=== PATIENT | female | born 1995 | race Two or more races ===

== ENCOUNTER 2017-12-17 21:15 | Emergency (ER) | payer SELFPAY ==
[~2017-12-17] VITALS: Ht 154.9 cm; Wt 47.6 kg
[2017-12-17 21:36] VITALS: BP 116/77
[2017-12-17 22:01] LABS: BILIRUBIN,URINE NEGATIVE (NEG); CLARITY,URINE CLOUDY; COLOR,URINE RED; NITRITE,URINE NEGATIVE (NEG); PROTEIN,URINE 100 mg/dL (NEG-TRACE); UROBILINOGEN,URINE 0.2 mg/dL (0.2 mg/dL)
[2017-12-17 22:06] LABS: RBC,URINE TNTC /HPF (0-2)
[2017-12-17 22:07] LABS: BACTERIA,URINE FEW /HPF (0-FEW); SQUAMOUS EPITHELIAL CELL,UR MOD /LPF
--- NOTE | 2017-12-17 22:21 | PHYS DOC ---
Past Medical History Past Medical History: No Pertinent History Alcohol Use: Occasionally Drug Use: Marijuana Adult General Chief Complaint Chief Complaint: VAGINAL BLEEDING HPI HPI Patient is a 22 year old female who presents with vaginal bleeding 6 weeks Patient was diagnosed couple weeks ago. Last menstrual period was November 09, 2017. She had onset of vaginal spotting earlier today which progressed to vaginal bleeding. She's had cramping throughout the day. She's passed no clots. She was lightheaded. Patient also states, she's had dysuria for the last 3 days. Currently hurts when she urinates. Review of Systems Review of Systems Constitutional: Denies fever or chills Eyes: Denies change in visual acuity, redness, or eye pain HENT: Denies nasal congestion or sore throat Respiratory: Denies cough or shortness of breath Cardiovascular: No additional information not addressed in HPI GI: Denies abdominal pain, nausea, vomiting, bloody stools or diarrhea : With dysuria and vaginal bleeding, no hematuria Musculoskeletal: Denies back pain or joint pain Integument: Denies rash or skin lesions Neurologic: Denies headache, focal weakness or sensory changes Endocrine: Denies polyuria or polydipsia All other systems were reviewed and found to be within normal limits, except as documented in this note. Current Medications Current Medications Current Medications Medications (Trade) Dose Ordered Sig/[facility] Start Time Stop Time Status Last Admin Dose Admin Ceftriaxone Sodium 1 gm/ Dextrose 50 ml @ 100 mls/hr Q24H 12/17/17 23:30 UNV Ceftriaxone Sodium (Rocephin) 1 gm Q24H 12/18/17 21:00 12/18/17 21:00 DC Allergies Allergies Allergies Coded Allergies Type Severity Reaction Last Updated Verified No Known Drug Allergies 12/17/17 No Physical Exam Physical Exam Constitutional: Well developed, well nourished, no acute distress, non-toxic appearance. HENT: Normocephalic, atraumatic, bilateral external ears normal, oropharynx moist, no oral exudates, nose normal. Eyes: PERRLA, EOMI, conjunctiva normal, no discharge. Neck: Normal range of motion, no tenderness, supple, no stridor. Cardiovascular:Heart rate regular rhythm, no murmur Lungs & Thorax: Bilateral breath sounds clear to auscultation Abdomen: Bowel sounds normal, soft, with suprapubic tenderness, no masses, no pulsatile masses. Skin: Warm, dry, no erythema, no rash. Pelvic with RN [place]-charge nurse Ingrid CARTER Normal external female genitalia Blood in vault, no clots With uterine tenderness to palpation, no adnexal tenderness or masses, os closed. Back: No tenderness, no CVA tenderness. Extremities: No tenderness, no cyanosis, no clubbing, ROM intact, no edema. Neurologic: Alert and oriented X 3, normal motor function, normal sensory function, no focal deficits noted. Psychologic: Affect normal, judgement normal, mood normal. Current Patient Data Vital Signs Vital Signs Date Time Temp Pulse Resp B/P (MAP) Pulse Ox O2 Delivery O2 Flow Rate FiO2 12/17/17 21:36 98.1 82 16 116/77 (90) 99 Room Air 98.1 Lab Values Laboratory Tests Test 12/17/17 21:17 12/17/17 22:13 Urine Collection Type Unknown Urine Color Red Urine Clarity Cloudy Urine pH 6.0 Urine Specific [place] >=1.030 Urine Protein 100 mg/dL (NEG-TRACE) Urine Glucose (UA) Negative mg/dL (NEG) Urine Ketones (Stick) Trace mg/dL (NEG) Urine Blood Large (NEG) Urine Nitrite Negative (NEG) Urine Bilirubin Negative (NEG) Urine Urobilinogen Dipstick 0.2 mg/dL (0.2 mg/dL) Urine Leukocyte Esterase Small (NEG) Urine RBC Tntc /HPF (0-2) Urine WBC 1-4 /HPF (0-4) Urine Squamous Epithelial Cells Mod /LPF Urine Bacteria Few /HPF (0-FEW) Urine Mucus Mod /LPF White Blood Count 6.0 x10^3/uL (4.0-11.0) Red Blood Count 4.46 x10^6/uL (3.50-5.40) Hemoglobin 14.3 g/dL (12.0-15.5) Hematocrit 40.8 % (36.0-47.0) Mean Corpuscular Volume 92 fL (79-100) Mean Corpuscular Hemoglobin 32 pg (25-35) Mean Corpuscular Hemoglobin Concent 35 g/dL (31-37) Red Cell Distribution Width 13.2 % (11.5-14.5) Platelet Count 242 x10^3/uL (140-400) Neutrophils (%) (Auto) 58 % (31-73) Lymphocytes (%) (Auto) 34 % (24-48) Monocytes (%) (Auto) 7 % (0-9) Eosinophils (%) (Auto) 1 % (0-3) Basophils (%) (Auto) 0 % (0-3) Neutrophils # (Auto) 3.5 x10^3uL (1.8-7.7) Lymphocytes # (Auto) 2.0 x10^3/uL (1.0-4.8) Monocytes # (Auto) 0.4 x10^3/uL (0.0-1.1) Eosinophils # (Auto) 0.1 x10^3/uL (0.0-0.7) Basophils # (Auto) 0.0 x10^3/uL (0.0-0.2) Maternal Serum HCG Beta Subunit 10 mIU/mL (0-5) H Sodium Level 142 mmol/L (136-145) Potassium Level 3.6 mmol/L (3.5-5.1) Chloride Level 104 mmol/L (98-107) Carbon Dioxide Level 30 mmol/L (21-32) Anion Gap 8 (6-14) Blood Urea Nitrogen 6 mg/dL (7-20) L Creatinine 0.7 mg/dL (0.6-1.0) Estimated GFR (Cockcroft-Gault) 105.6 Glucose Level 108 mg/dL (70-99) H Calcium Level 9.4 mg/dL (8.5-10.1) Laboratory Tests 12/17/17 22:13 Laboratory Tests 12/17/17 22:13 Microbiology 12/17/17 Wet Prep - Final, Complete EKG EKG [] Radiology/Procedures Radiology/Procedures [facility] [address] [place] [address] IMAGING REPORT Signed PATIENT: NATONIA DUDLEY ACCOUNT: [id number] : 1995 LOCATION: ER AGE: 22 SEX: F EXAM STATUS: REG ER ORD. PHYSICIAN: KURT GOMEZ MD REASON: and bleeding PROCEDURE: PREG 1ST TRIMESTER Early OB ultrasound History: Beta hCG is 10. Pain Comparison: None. Technique: Endovaginal imaging was performed as this is more sensitive for detection of intrauterine . Findings: Uterus measures 6.2 cm in length. No intrauterine is identified. Endometrial thickness is 9 mm. Right ovary measures 1.8 x 2.2 x 3.1 cm and demonstrates a few follicles. Left ovary measures 1.7 x 2.2 x 2.1 cm and demonstrates a few follicles. Both ovaries demonstrate normal vascular flow upon Doppler interrogation and are without evidence of torsion. No adnexal masses are seen. Impression: 1. No intrauterine is identified, within expectation given the low beta hCG level of 10. Most likely etiology is exceedingly early intrauterine . Other less likely possibilities would be ectopic (although there is no positive ultrasound evidence of such) or completed spontaneous . 2. Recommend serial beta hCG levels and pelvic ultrasound as clinically indicated. Electronically signed by: Darek Diaz MD (12/17/2017 10:57 PM) [facility] DICTATED and SIGNED BY: DAREK DIAZ MD DATE: 12/17/17 8854 Course & Med Decision Making Course & Med Decision Making Pertinent Labs and Imaging studies reviewed. (See chart for details) Emergency Department Course Patient presents with vaginal bleeding DDx-threatened miscarriage, ectopic , complete The patient was stable in the ED. Labs unremarkable BHCG=10. Pelvic U/A showed no IUP. Blood type O+. U/A with blood WBCs and bacteria. Patient given Rocephin for dysuria. The patient will need serial BHCG testing with regional sales trainer follow-up. Patient given prescription for Keflex. Patient advised to return to the ED if she develops worse bleeding, pain, lightheadedness, fevers or vomiting. Dragon Disclaimer Dragon Disclaimer This electronic medical record was generated, in whole or in part, using a voice recognition dictation system. Departure Departure Impression: Primary Impression: Additional Impressions: Vaginal bleeding in Dysuria UTI (urinary tract infection) Disposition: 01 HOME, SELF-CARE Condition: STABLE Referrals: NO PCP (PCP) Follow-up tomorrow for further evaluation DENIA PILLAI Jr, MD Patient Instructions: Urinary Tract Infection, Vaginal Bleeding During , [id number] Additional Instructions: If he develop worse pain, bleeding, lightheadedness, fevers, vomiting return to the emergency department immediately Scripts Cephalexin (KEFLEX) 500 Mg Capsule 1 CAP PO BID, #14 CAP Prov: KURT GOMEZ MD 12/18/17 Problem Qualifiers KURT GOMEZ MD Dec 17, 2017 22:21
[2017-12-17 22:26] LABS: BASO % 0 % (0-3); EOS # 0.1 x10^3/uL (0.0-0.7); EOS % 1 % (0-3); HEMATOCRIT 40.8 % (36.0-47.0); HEMOGLOBIN 14.3 g/dL (12.0-15.5); LYMPH % 34 % (24-48); MEAN CORPUSCULAR HEMOGLOBIN 32 pg (25-35); MEAN CORPUSCULAR HGB CONC 35 g/dL (31-37); MEAN CORPUSCULAR VOLUME 92 fL (79-100); MONO # 0.4 x10^3/uL (0.0-1.1); MONO % 7 % (0-9); NEUT # 3.5 x10^3uL (1.8-7.7); NEUT % 58 % (31-73); PLATELET COUNT 242 x10^3/uL (140-400); RED BLOOD COUNT 4.46 x10^6/uL (3.50-5.40); RED CELL DISTRIBUTION WIDTH 13.2 % (11.5-14.5)
[2017-12-17 22:34] LABS: CALCIUM 9.4 mg/dL (8.5-10.1); CREATININE 0.7 mg/dL (0.6-1.0); GFR 105.6; POTASSIUM 3.6 mmol/L (3.5-5.1)
--- NOTE | 2017-12-17 22:59 | RAD ---
Early OB ultrasound History: Beta hCG is 10. Pain Comparison: None. Technique: Endovaginal imaging was performed as this is more sensitive for detection of intrauterine . Findings: Uterus measures 6.2 cm in length. No intrauterine is identified. Endometrial thickness is 9 mm. Right ovary measures 1.8 x 2.2 x 3.1 cm and demonstrates a few follicles. Left ovary measures 1.7 x 2.2 x 2.1 cm and demonstrates a few follicles. Both ovaries demonstrate normal vascular flow upon Doppler interrogation and are without evidence of torsion. No adnexal masses are seen. Impression: 1. No intrauterine is identified, within expectation given the low beta hCG level of 10. Most likely etiology is exceedingly early intrauterine . Other less likely possibilities would be ectopic (although there is no positive ultrasound evidence of such) or completed spontaneous . 2. Recommend serial beta hCG levels and pelvic ultrasound as clinically indicated. Electronically signed by: Darek Ruiz MD (12/17/2017 10:57 PM) [facility]
[2017-12-18] MEDS ORDERED: CEPH-264 PO (01:05)
[2017-12-18] MEDS ORDERED: cefTRIAXone IV Push 1 GM VIAL. IVP SCH (21:00)
[2017-12-22 15:32] LABS: GC PROBE Negative (Negative)
--- NOTE | 2017-12-23 14:09 | VNOTE ---
CALL BACK NOTE CALL BACK Microbiology 12/17/17 Wet Prep - Final, Complete 12/17/17 Urine Culture - Final, Complete 12/17/17 Urine Culture Result 1 (NEHEMIAS) - Final, Complete Patient was positive for chlamydia, was not treated, left voicemail. ROSELIA MCMULLEN APRN Dec 23, 2017 14:09
--- NOTE | 2017-12-25 09:39 | VNOTE ---
CALL BACK NOTE CALL BACK Microbiology 12/17/17 Wet Prep - Final, Complete 12/17/17 Urine Culture - Final, Complete 12/17/17 Urine Culture Result 1 (NEHEMIAS) - Final, Complete Spoke with patient and advised of positive chlamydia test. Pt was advised to avoid intercourse for 2 weeks after treatment. Also encouraged to notify any current partners and to avoid intercourse for 2 week following their treatment. Prescription for zithromax 1gm PO x1 called into [address] [facility] location at [phone]. YUDELKA ESCALANTE APRN Dec 25, 2017 09:39
== END 2017-12-18 01:22 | disposition home or self-care (01) ==
LOC: ER 21:15
DX: O20.8 Other hemorrhage in early pregnancy (principal); O23.41 Unspecified infection of urinary tract in pregnancy, first trimester; R42 Dizziness and giddiness; Z3A.01 Less than 8 weeks gestation of pregnancy
CPT/HCPCS: 36415; 76801; 80048; 81001; 84702; 85025; 86900; 86901; 87086; 87480; 87510; 87660; 96365; 99285; J0690; Q0111; 87491; 87591